=== PATIENT | female | born 1995 | race Caucasian/White ===

== ENCOUNTER 2017-03-12 05:16 | Inpatient (IN) ==
[~2017-03-12 05:16] MED LIST: *HR* FentaNYL (PF) 100 MCG/2 ML VIAL IVP PRN; Famotidine 20 MG/2 ML VIAL IVP PRN; Naloxone 0.4 MG/ML INJ IVP PRN; Ondansetron 4 MG/2 ML VIAL IVP PRN
[2017-03-12] MEDS ORDERED: Ringers Solution, Lactated 1,000 ML IVC SCH (05:30)
[2017-03-12 05:37] LABS: Basophils % 0.2 %; Eosinophils # 0.1 K/mcL (0.0-0.6); Eosinophils % 0.7 %; Hemoglobin 10.4 g/dL (11.5-15.4); Immature Granulocytes % 0.9 % (0-4); Lymphocytes # 2.1 K/mcL (0.6-4.6); Lymphocytes % 17.4 %; Mean Corpuscular HGB Conc 32.5 g/dL (31.6-35.5); Mean Corpuscular Hemoglobin 25.7 pg (28.0-33.3); Mean Corpuscular Volume 79.2 fL (83.0-100.0); Mean Platelet Volume 10.7 fL (9.4-12.4); Monocytes # 0.8 K/mcL (0.0-1.3); Monocytes % 6.8 %; Neutrophils # 8.8 K/mcL (1.6-8.9); Platelet Count 186 K/mcL (140-400); Red Blood Count 4.04 M/mcL (3.82-4.97); Red Cell Distribution Width 14.7 % (11.5-14.5)
[2017-03-12] MEDS ORDERED: Penicillin G Potassium 5,000,000 UNIT in D5% in Water (Mini-Bag+) 100 ML IVPB ONE (05:37)
[2017-03-12] MEDS ORDERED: Metoclopramide 10 MG/2 ML VIAL IVP PRN (05:48)
--- NOTE | 2017-03-12 08:51 | OB/GYN History & Physical ---
Date of Encounter: 03/12/17 Time of Encounter: 08:49 Assessment and Plan (1) 38 weeks gestation of Current visit: Yes Status: Acute (2) SROM (spontaneous rupture of membranes) Current visit: Yes Status: Acute History of Present Illness HPI: Ms. Peck is a 22 year old female 22-year-old 2 para 1 white female who enters complaining of spontaneous rupture membranes at 4 AM patient reports. Patient reports irregular contractions since that time. Patient reports active fetus. Patient reports fluid was clear. She denies problems with her . Patient has been followed by an outside provider. Past Med Surg Social Fam HX - Past Medical History Medical history: no medical history Psychiatric history: anxiety - Past Surgical History Surgical History: cholecystectomy - Social History Smoking Status: Current every day smoker Packs per day: 1 Smokeless Tobacco Status: No Alcohol use: none Drug use: none - Family History Maternal Grandmother Living Status: Hx Family Cancer: Yes Obstetrical History - Pregnancies : 2 Para: 1 Medications and Allergies Ondansetron ODT [Zofran ODT] 4 mg PO PRN 03/12/17 [History] Vit/Iron Fumarate/FA [ Tablet] 1 each PO DAILY 03/12/17 [ History] Allergies No Known Allergies Allergy (Verified 03/12/17 05:17) Review of System OB All systems PM: reviewed and no additional remarkable complaints except as stated - Genitourinary Genitourinary: amenorrhea - Menstruation Menstruation: amenorrhea Exam - Constitutional Constitutional: well developed, no acute distress, obese - HEENT HEENT: Normocephaly - Neck Neck exam: full ROM - Lungs Respiratory exam: CTAB - Cardiovascular Cardiovascular exam: RRR - Abdomen Abdomen: Present: gravid, non tender - Extremities Extremities exam: full ROM Deep Tendon Reflex Grade: 2+ Normal - Vulva Vulva: bilateral: normal - Vagina Vagina: Present: normal moisture - Cervix Dilation: 3 Effacement: 75 Station: -2 - Uterus Uterus exam: Present: enlarged Results Result Diagrams: 03/12/17 05:27 Abnormal lab results WBC 11.8 K/mcL (4.3-11.1) H 03/12/17 05:27 Hgb 10.4 g/dL (11.5-15.4) L 03/12/17 05:27 Hct 32.0 % (35.3-44.9) L 03/12/17 05:27 MCV 79.2 fL (83.0-100.0) L 03/12/17 05:27 MCH 25.7 pg (28.0-33.3) L 03/12/17 05:27 RDW 14.7 % (11.5-14.5) H 03/12/17 05:27 All other labs normal. - VTE Reasons for not Prescribing Prophylaxis: Treatment not Indicated - Low risk for VTE - Attending Attestation joseph henderson md [facility]
[2017-03-12] MEDS: Penicillin G Potassium 2,500,000 UNIT in D5% in Water 100 ML IVPB SCH ×3 (10:03→18:17)
[2017-03-12] MEDS ORDERED: Oxytocin 20 units/ LR 1000 mL 20 UNIT/1,000 ML BAG IVC SCH (12:45)
[2017-03-12] MEDS ORDERED: *HR* FentaNYL (PF) 100 MCG/2 ML VIAL EP ONE (13:46)
[2017-03-12] MEDS ORDERED: EPHEDrine 50 MG/ML VIAL IVP PRN (13:46)
[2017-03-12] MEDS ORDERED: Ringers Solution, Lactated 500 ML IVC ONE (13:46)
[2017-03-12] MEDS ORDERED: *HR* Ropivacaine/PF 0.2% 10 ML AMPUL EP ONE (13:46)
--- NOTE | 2017-03-12 13:49 | Anesthesia Evaluation PreOp ---
Date of Encounter: 03/12/17 Time of Encounter: 10:00 - Past History Planned Operation: NORI Cardiac History: Denies any Significant Hx Pulmonary History: Smoker (0.5ppd) STEREOTYPER History: Denies Any Significant HX Other Medical History: Denies Any Significant HX Anesthesia History: No Prior Anesthetic Complications, Past Anesthesia (epidural ) Alcohol Use: none Drug use: none Medications and Allergies Ondansetron ODT [Zofran ODT] 4 mg PO PRN 03/12/17 [History] Vit/Iron Fumarate/FA [ Tablet] 1 each PO DAILY 03/12/17 [ History] Allergies No Known Allergies Allergy (Verified 03/12/17 05:17) - Meds/Allergy Pre-op Review Medications Reviewed: Yes Allergies Reviewed: Yes Beta Blockers on Current Med List: No Anesthesia Results - Labs 03/12/17 05:27 Anesthesia Exam Height: 1.6m Weight: 94kg NPO (# of Hours): >4hr Pain Scale: 8 Pain Scale Used: Numeric (1 - 10) - HEENT Pupil (Motor): Pupils equal Mallampati: II Teeth: Normal Oral Opening: Greater than 3 - STEREOTYPER LOC: Oriented STEREOTYPER Motor: Normal RUE, Normal LUE, Normal RLE, Normal LLE, Normal Face STEREOTYPER Sensory: Normal: RUE, LUE, RLE, LLE, Face - Cardiac Rhythm: Regular Murmur: None JVD: No Carotid Bruit: No - Pulmonary Breath Sounds: bilateral Clear Respiratory Effort: Symmetrical Anesthesia Assess/Plan ASA Score: 2 Modified [place] Scale for Level of Consciousness: Cooperative, oriented, and tranquil Anesthetic Plan: Regional Monitoring Plan: Standard Monitors Recovery Plan: Other
[2017-03-12] MEDS ORDERED: *HR* FentaNYL (PF) 100 MCG/2 ML VIAL ONE ×2 (13:56→21:23)
[2017-03-12] MEDS ORDERED: Epidural Premix (fent/bupiv) 110 ML EP ONE ×2 (13:57→20:47)
[2017-03-12] MEDS ORDERED: ROPIVACAINE HCL/PF 0.5% 30 ML VIAL ONE (13:57)
[2017-03-12] MEDS ORDERED: Epidural Premix (fent/bupiv) 110 ML EP SCH (14:00)
--- NOTE | 2017-03-12 14:24 | Anesthesia Procedures ---
Date of Encounter: 03/12/17 Time of Encounter: 13:59 Procedures: Anesthesia - Epidural/Spinal Patient ID/Chart reviewed: Yes Patient examined: Yes OB Eval: Gestational age: 38.5 OB Eval: : 2 OB Eval: Hx Para: 1 OB Eval: Contractions: Non-stressed pattern Consent Obtained: Yes Supplemental Oxygen: None/Room Air Site Prep: Aseptic Technique, Sterile prep and drape, 0.5% Chlorhexidine/Alcohol Patient position: upright Local Anesthetic: Lidocaine 1% Amount of Local Anesthetic used: 3 Touhy Needle Gauge: 18 Touhy Needle Depth (cm): 8 Catheter Depth at Skin (cm): 15 Test Dose (1.5% Lido + Epi): Volume given (mls): 5 Test Dose Result: Negative Loading Dose: Fentanyl (mcg): 100 Loading Dose: Other: Ropivacaine 0.5% 10mL Loading Dose Administered: Thru Catheter Infusion Med: 0.125% Bupivacaine w/ 2 mcg/ml Fentanyl Infusion Rate (mls/hr): 14 (Bolus 4mL q15min; Max 3/hr) Catheter Secured in Place: Tegaderm Interspace Used: L3-L4 Loss of Resistance (MORGAN): Yes Blood: No CSF: No Paresthesia: No Procedure: x2 attempts. Patient tolerated well. Vitals + FHT's: Vss and FHR stable throughout. See nursing documentation.
--- NOTE | 2017-03-12 15:46 | Anesthesia Procedures ---
Date of Encounter: 03/12/17 Time of Encounter: 15:22 Procedures: Anesthesia - Epidural/Spinal Patient ID/Chart reviewed: Yes Patient examined: Yes OB Eval: Gestational age: 38.5 OB Eval: : 2 OB Eval: Hx Para: 1 OB Eval: Dilated at (cm): 5 OB Eval: Contractions: Non-stressed pattern Consent Obtained: Yes Supplemental Oxygen: None/Room Air Site Prep: Aseptic Technique, Sterile prep and drape, 0.5% Chlorhexidine/Alcohol Patient position: upright Local Anesthetic: Lidocaine 1% Amount of Local Anesthetic used: 3 Touhy Needle Gauge: 18 Touhy Needle Depth (cm): 7 Catheter Depth at Skin (cm): 14 Test Dose (1.5% Lido + Epi): Volume given (mls): 5 Test Dose Result: Negative Loading Dose: Other: Ropivacaine 0.5% 8mL Loading Dose Administered: Thru Catheter Infusion Rate (mls/hr): 14 (Bolus 4mL q15min; Max 3/hr) Catheter Secured in Place: Tegaderm Interspace Used: L2-L3 Loss of Resistance (MORGAN): Yes Blood: No CSF: No Paresthesia: No Procedure: Following first epidural patient had decrease in pain from 7-8/10 to 2-3/10 initially. Pain level returned to baseline after approximately 1 hour. Only area of profound numbness was in right thigh and knee area. Decision made to replace catheter. Placement without difficulty at L2-3 x1 attempt. Patient tolerated well and reports increased comfort after bolus compared to first epidural. Will continue monitoring. Vitals + FHT's: VSS and FHR stable throughout. See nursing documentation.
--- NOTE | 2017-03-12 18:39 | OB/GYN Progress Note ---
Date of Encounter: 03/12/17 Time of Encounter: 18:37 - Assessment and Plan (1) 38 weeks gestation of Current Visit: Yes Status: Acute (2) SROM (spontaneous rupture of membranes) Current Visit: Yes Status: Acute Subjective - Subjective Interval history: Comfortable with epidural Objective - Vital Signs Vital Signs: Intake and Output 03/12/17 03/12/17 03/12/17 07:59 15:59 23:59 Intake Total 200 / 200 Balance 200 / 200 Intake: IV Fluids 200 / 200 Pfizerpen 2,500,000 UNIT 200 / 200 In Dextrose 5% 100 ML @ 200 mls/hr IVPB Q4HR [facility] Rx#:[id number] Other: Weight 94 kg Patient Weight 03/12/17 23:59 Weight 94 kg - Exam FHR: category 1 Cervical dilation: rim Cervix effacement: 100 station: 0 - Labs Labs: Abnormal lab results WBC 11.8 K/mcL (4.3-11.1) H 03/12/17 05:27 Hgb 10.4 g/dL (11.5-15.4) L 03/12/17 05:27 Hct 32.0 % (35.3-44.9) L 03/12/17 05:27 MCV 79.2 fL (83.0-100.0) L 03/12/17 05:27 MCH 25.7 pg (28.0-33.3) L 03/12/17 05:27 RDW 14.7 % (11.5-14.5) H 03/12/17 05:27
[2017-03-13] MEDS ORDERED: *HR* FentaNYL (PF) 100 MCG/2 ML VIAL ONE ×6 (02:59→09:42)
[2017-03-13] MEDS ORDERED: *HR* Ropivacaine/PF 0.2% 10 ML AMPUL ONE (02:59)
[2017-03-13] MEDS ORDERED: Epidural Premix (fent/bupiv) 110 ML EP ONE (03:47)
--- NOTE | 2017-03-13 07:13 | OB/GYN Progress Note ---
Date of Encounter: 03/13/17 Time of Encounter: 06:40 - Assessment and Plan (1) 38 weeks gestation of Current Visit: Yes Status: Acute (2) SROM (spontaneous rupture of membranes) Current Visit: Yes Status: Acute (3) Prolonged second stage Current Visit: Yes Status: Acute We will allow to labor down. Consider section. Subjective - Subjective Interval history: Per nursing staff, patient has been completely dilated for several hours. They tried pushing her for about an hour with no progress. Will allow her to labor down. Objective - Vital Signs Vital Signs: Intake and Output 03/12/17 03/12/17 03/13/17 15:59 23:59 07:59 Intake Total 200 / 200 Balance 200 / 200 Intake: IV Fluids 200 / 200 Pfizerpen 2,500,000 UNIT 200 / 200 In Dextrose 5% 100 ML @ 200 mls/hr IVPB Q4HR [facility] Rx#:[id number] - Exam FHR: category 1 Cervical dilation: complete Cervix effacement: 100 station: 0 - Labs Labs: Abnormal lab results WBC 11.8 K/mcL (4.3-11.1) H 03/12/17 05:27 Hgb 10.4 g/dL (11.5-15.4) L 03/12/17 05:27 Hct 32.0 % (35.3-44.9) L 03/12/17 05:27 MCV 79.2 fL (83.0-100.0) L 03/12/17 05:27 MCH 25.7 pg (28.0-33.3) L 03/12/17 05:27 RDW 14.7 % (11.5-14.5) H 03/12/17 05:27
[2017-03-13] MEDS ORDERED: Ringers Solution, Lactated 1,000 ML ONE (08:41)
[2017-03-13] MEDS ORDERED: *HR* Oxytocin 10 UNIT/ML VIAL IM ONE (08:58)
[2017-03-13] MEDS ORDERED: *HR* Morphine Sulfate/PF 5 MG/10 ML AMPUL ONE (09:07)
[2017-03-13] MEDS ORDERED: Ketamine *HR* 500 MG/10 ML MDV ONE (09:15)
[2017-03-13] MEDS ORDERED: *HR* Phenylephrine 10 MG/ML VIAL ONE (09:16)
[2017-03-13] MEDS ORDERED: *HR* Promethazine 25 MG/ML VIAL IVP PRN (09:24)
[2017-03-13] MEDS ORDERED: *HR* Meperidine 25 MG/ML SYRINGE IVP PRN (09:24)
[2017-03-13] MEDS ORDERED: *HR* HYDROmorphone (PF) 1 MG/ML SYRINGE IVP PRN ×2 (09:24→12:17)
[2017-03-13] MEDS ORDERED: Ketorolac 30 MG/ML VIAL ONE (09:43)
[2017-03-13] MEDS ORDERED: Ondansetron 4 MG/2 ML VIAL ONE (09:50)
--- NOTE | 2017-03-13 09:56 | OB/GYN Procedure Note ---
Section - Date of procedure: 03/13/17 Preop diagnosis: arrest of descent, category 2 FHT tracing Post-op diagnosis: same Procedure: primary low transverse Surgeon: Marce Galindo Estimated blood loss (cc): 400 Anesthesiologist: Leslee Wheat Automatic Fabric Cutter: Star Collazo Anesthesia Type: Epidural section complications: none Disposition: L&D Recovery Room Specimens: Placenta - (s) Infant A Delivery Date: 03/13/17 Infant Delivery Time: 08:57 Presentation: vertex Position: LOP Route of delivery: other Gender: Male Viability: Viable Pounds: 7 Ounces: 11 Gram Weight: 3475 kg at 1 minute: 7 at 5 minutes: 9 Placenta: complete extraction Cord: nuchal cord, nuchal reduced - Narrative Narrative: Indications: Oncoming change of call. Asked to see patient for evaluation of "turtle sign". Received report that patient has been ruptured for greater than 24 hours and has been completely dilated for several hours. I was told that with pushing the scalp was visualized at the introitus however it would regress along the contraction. I was also told according to the patient that the estimated weight at 32 weeks was 7 pounds. Her care was with Dr. Kovacs. Limited records were present but I could not find any documentation of fundal size with each visit and no ultrasound report was noted. During my exam significant It was noted with a +1 station. heart rate was in the 90s however it did respond to scalp stimulation. Given the above history and findings it was decided to proceed with a section. Procedure: Due to the heart rate in the 90s verbal consent was obtained. Patient was taken the operative room and placed in supine position with left uterine displacement. Skin was then prepped and draped in usual sterile fashion. It should be noted that while the fetus was monitored in the operating room the heart rate was in the 140s. The skin was then prepped and draped in usual sterile fashion, and a timeout procedure was performed. EPCD were in place and IV antibiotics were administered. Adequate anesthesia was present. A Pfannenstiel incision was performed and carried down through the fascial layer until the abdominal cavity was entered. A low-transverse uterine incision was then performed and extended bilaterally with bandage scissors. A viable male was then delivered from a vertex left occiput posterior position with scores of 7 and 9 at one and 5 minutes respectively, and the weighed 7 lbs. 1 oz. A loose nuchal cord 1 was present and was easily reduced. The cord was clamped and cut and the was handed to the nursery team. The placenta was then manually removed. The uterine incision was closed in a layered fashion with 0 Vicryl suture in a running locking fashion. Both tubes and ovaries were visualized with no abnormalities noted. The paracolic gutters were then gently wiped clean with wet lap sponge. Good hemostasis was present. The fascial layer was then closed with 0 PDS stratafix suture in a running nonlocking fashion. Subcutaneous layer was then irrigated with sterile water and good hemostasis was noted. Subcutaneous layer was closed with 0 chromic suture in a running nonlocking fashion. The skin was then closed with 4-0 Vicryl suture in a running nonlocking subcuticular fashion. A piece of Dermabond mesh was then placed over the incision site. Patient followed procedure well, all sponge needle and counts reported as correct. Estimated blood loss was 400 mL. The urine in the Granados catheter was clear and yellow. She was admitted to the recovery room in stable condition.
[2017-03-13] MEDS ORDERED: Oxytocin 20 units/ LR 1000 mL 20 UNIT/1,000 ML BAG IVC ONE (10:08)
[2017-03-13] MEDS ORDERED: Ondansetron 4 MG/2 ML VIAL IVP PRN (12:17)
[2017-03-13] MEDS ORDERED: Simethicone 80 MG TAB.CHEW PO PRN (12:17)
[2017-03-13] MEDS ORDERED: Metoclopramide 10 MG/2 ML VIAL IVP PRN (12:17)
[2017-03-13] MEDS ORDERED: Oxytocin 20 units/ LR 1000 mL 20 UNIT/1,000 ML BAG IVC SCH (12:17)
--- NOTE | 2017-03-13 15:08 | Anesthesia Evaluation Post Op ---
Date of Encounter: 03/13/17 Time of Encounter: 15:07 - Vital Signs Vital Signs: vss - Lungs Lungs: Clear Ascult./Percussion - Airway Airway: Non-obstructed - Cardiovascular Baseline Rhythm - Mental Status Mental Status: Alert & Oriented, Answers Appropriately - Pain Pain Scale used: Pappas-Pepe (Faces) (tolerable) - Nausea Vomiting Nausea Vomiting: Not Present
[2017-03-14] MEDS: Ibuprofen 600 MG TABLET PO PRN ×3 (00:14→15:56)
[2017-03-14 04:27] LABS: Basophils % 0.2 %; Eosinophils # 0.1 K/mcL (0.0-0.6); Hematocrit 25.2 % (35.3-44.9); Immature Granulocytes % 0.5 % (0-4); Lymphocytes % 18.4 %; Mean Corpuscular HGB Conc 32.5 g/dL (31.6-35.5); Mean Corpuscular Hemoglobin 25.6 pg (28.0-33.3); Mean Corpuscular Volume 78.8 fL (83.0-100.0); Mean Platelet Volume 11.1 fL (9.4-12.4); Monocytes # 0.8 K/mcL (0.0-1.3); Monocytes % 7.5 %; Platelet Count 145 K/mcL (140-400); Red Cell Distribution Width 14.8 % (11.5-14.5); Segmented Neutrophils % 72.4 %
[2017-03-14 04:28] LABS: Hemoglobin 8.2 g/dL (11.5-15.4)
[2017-03-14] MEDS: Prenatal Vit/FA 1 EACH TABLET PO SCH (07:48)
[2017-03-14] MEDS: *HR* OxyCODONE/APAP 5/325 TABLET PO PRN ×3 (08:16→17:45)
--- NOTE | 2017-03-14 08:54 | OB/GYN Progress Note ---
Date of Encounter: 03/14/17 Time of Encounter: 08:52 - Assessment and Plan (1) Status post primary low transverse section Current Visit: Yes Status: Acute Continue routine postop/ care possible discharge home tomorrow (2) anemia Current Visit: Yes Status: Acute Ferrous sulfate BID Subjective - Subjective Principal diagnosis: Postop/ day 1 primary c/s Interval history: Patient up ambulating in room. Patient denies any pain at this time. Patient is bottle feeding. Patient reports: appetite normal, voiding normally, pain well controlled, ambulating normally : doing well, bottle feeding Objective - Vital Signs Latest vital signs: Vital Signs Temp Pulse Resp BP Pulse Ox 03/14/17 08:29 97.9 F 80 16 95/60 97 03/14/17 08:14 12 03/14/17 04:00 98.4 F 84 12 100/64 96 03/14/17 00:15 98.2 F 88 14 103/68 95 03/13/17 20:00 98.4 F 89 12 104/68 95 03/13/17 15:00 98.4 F 90 16 113/70 96 03/13/17 14:00 98.7 F 79 16 111/55 97 03/13/17 13:00 98.8 F 81 16 98/49 98 03/13/17 12:30 98.3 F 89 16 113/54 96 03/13/17 12:12 98.5 F 83 16 118/64 96 Intake and Output 03/13/17 03/14/17 03/14/17 23:59 07:59 15:59 Output Total 350 / 350 1600 / 1600 400 / 400 Balance -350 / -350 -1600 / -1600 -400 / -400 Output: Urine 400 / 400 Catheter 350 / 350 1600 / 1600 Other: Weight 92.6 kg Patient Weight 03/14/17 23:59 Weight 92.6 kg - Exam Lungs: bilateral: normal Chest: Normal S1, Normal S2 Extremities: Present: normal Abdomen: Present: normal appearance, soft, gravid Incision: Present: normal, dry, intact Uterus: Present: normal, firm Fundal Height: 2 (U/2) - Labs Labs: Laboratory Results - last 24 hr 03/14/17 04:00 WBC 11.0 RBC 3.20 L Hgb 8.2 L D Hct 25.2 L MCV 78.8 L MCH 25.6 L MCHC 32.5 RDW 14.8 H Plt Count 145 MPV 11.1 Immature Gran % 0.5 Seg Neutrophils % 72.4 Lymphocytes % 18.4 Monocytes % 7.5 Eosinophils % 1.0 Basophils % 0.2 Neutrophils # 8.0 Lymphocytes # 2.0 Monocytes # 0.8 Eosinophils # 0.1 Basophils # 0.0
[2017-03-15] MEDS: Ibuprofen 600 MG TABLET PO PRN ×3 (00:19→15:55)
[2017-03-15] MEDS: *HR* OxyCODONE/APAP 5/325 TABLET PO PRN ×3 (00:19→15:55)
[2017-03-15 08:23] VITALS: BP 100/56
[2017-03-15] MEDS: Prenatal Vit/FA 1 EACH TABLET PO SCH (10:10)
--- NOTE | 2017-03-15 10:17 | Discharge Summary ---
Date of Encounter: 03/15/17 Time of Encounter: 10:14 - Discharge Diagnosis (1) Status post primary low transverse section Priority: Primary Status: Acute Comments: Meeting all milestones. No complaints. Desires discharge (2) anemia Priority: Secondary Status: Acute Comments: Iron rx at discharge - Discharge Medications Prescriptions: OxyCODONE/APAP 5/325 [Percocet 5/325 MG] 1 each PO Q4HR PRN #20 tablet PRN Reason: Moderate pain 4-6 Ibuprofen [Motrin] 600 mg PO Q6HR PRN #60 tablet PRN Reason: Cramping Docusate [Colace] 100 mg PO BID #60 capsule Ferrous Sulfate 325 mg PO BIDWM #60 tablet Home Medications: Vit/Iron Fumarate/FA [ Tablet] 1 each PO DAILY 03/12/17 [ History] Docusate [Colace] 100 mg PO BID #60 capsule 03/15/17 [Rx] Ferrous Sulfate 325 mg PO BIDWM #60 tablet 03/15/17 [Rx] Ibuprofen [Motrin] 600 mg PO Q6HR PRN #60 tablet 03/15/17 [Rx] OxyCODONE/APAP 5/325 [Percocet 5/325 MG] 1 each PO Q4HR PRN #20 tablet 03/15/17 [Rx] Allergies/Adverse Reactions: Allergies No Known Allergies Allergy (Verified 03/12/17 05:17) Data Procedures and tests throughout hospitalization: Laboratory Tests 03/12/17 03/14/17 05:27 04:00 WBC 11.8 H 11.0 RBC 4.04 3.20 L Hgb 10.4 L 8.2 L D Hct 32.0 L 25.2 L MCV 79.2 L 78.8 L MCH 25.7 L 25.6 L MCHC 32.5 32.5 RDW 14.7 H 14.8 H Plt Count 186 145 MPV 10.7 11.1 Immature Gran % 0.9 0.5 Seg Neutrophils % 74.0 72.4 Lymphocytes % 17.4 18.4 Monocytes % 6.8 7.5 Eosinophils % 0.7 1.0 Basophils % 0.2 0.2 Neutrophils # 8.8 8.0 Lymphocytes # 2.1 2.0 Monocytes # 0.8 0.8 Eosinophils # 0.1 0.1 Basophils # 0.0 0.0 Date of admission: 03/12/17 05:16 Primary care physician: PCP NO Discharging clinician: Mary Guy Anticipated date of discharge: 03/15/17 - Patient Status Disposition: Home, Self-Care Condition: Good Functional capacity at discharge: independent ambulation Overall status at discharge: patient is back to baseline - Discharge Instructions Instructions: Anemia (GEN) Follow Up With: NO,PCP [Primary Care Provider] - Marce Galindo DO [Partnered Physician] - - Diet and Activity Activity: resume usual activities as tolerated Diet: regular diet Hospital Course Reason for admission: IUP at term Delivery: section Episiotomy: none Laceration: none Other procedures: none complications: none Discharge diagnosis: IUP at term delivered [place] baby: male Hospital course: Section - Date of procedure: 03/13/17 Preop diagnosis: arrest of descent, category 2 FHT tracing Post-op diagnosis: same Procedure: primary low transverse Surgeon: Marce Galindo Estimated blood loss (cc): 400 Anesthesiologist: Leslee Wheat Event Specialist: Star Collazo Anesthesia Type: Epidural section complications: none Disposition: L&D Recovery Room Specimens: Placenta - (s) A Delivery Date: 03/13/17 Delivery Time: 08:57 Presentation: vertex Position: LOP Route of delivery: other Gender: Male Viability: Viable Pounds: 7 Ounces: 11 Gram Weight: 3475 kg at 1 minute: 7 at 5 minutes: 9 Placenta: complete extraction Cord: nuchal cord, nuchal reduced Stable in . Appropriate for discharge OAARS reviewed Time Attestation: Total time spent providing and/or coordinating discharge services: Time Spent: Less than 30 minutes - VTE Reasons for not Prescribing Prophylaxis: Treatment not Indicated - Low risk for VTE Documentation of Mechanical Device: Intermittent pneumatic compression device Exam - Constitutional Vitals: Temp Pulse Resp BP Pulse Ox 97.7 F 64 12 100/56 96 03/15/17 07:55 03/15/17 07:55 03/15/17 07:55 03/15/17 07:55 03/15/17 07:55 General appearance IM: A&O X 3 - Respiratory Respiratory exam: Present: CTAB - Cardiovascular Cardiovascular exam IM: Present: RRR, +S1, +S2 - GI/Abdominal GI/Abdominal exam IM: soft Incision: normal, dry, intact - Uterine Tone: Firm Uterus Position: Midline - Extremities Exam Extremities exam IM: Present: normal capillary refill, normal inspection - Neurological Exam Neurological exam: normal gait, oriented X3, reflexes normal - Psychiatric Additional comments: reports good mood
== END 2017-03-15 18:00 | disposition home or self-care (01) | DRG 540 ==
LOC: 1NENULAB → 1NENUOBS 03-13 12:01
PROVIDERS: ADMIT Obstetrics & Gynecology; ATTEND Obstetrics & Gynecology

== ENCOUNTER 2019-11-27 17:05 | Inpatient (IN) ==
[~2019-11-27 17:05] MED LIST changes: -*HR* FentaNYL (PF) 100 MCG/2 ML VIAL IVP PRN; +Azithromycin 500 MG in 0.9 % Sodium Chloride 250 ML IVPB STA; +CeFAZolin 2,000 MG/50 ML BAG IVPB ONE; +Famotidine 20 MG/2 ML VIAL IVP ONE; -Famotidine 20 MG/2 ML VIAL IVP PRN; +Metoclopramide 10 MG/2 ML VIAL IVP ONE; -Naloxone 0.4 MG/ML INJ IVP PRN; -Ondansetron 4 MG/2 ML VIAL IVP PRN; +Oxytocin 20 units/ LR 1000 mL 20 UNIT/1,000 ML BAG IVC ONE; +Ringers Solution, Lactated 1,000 ML ONE
[2019-11-27] MEDS ORDERED: Oxytocin 20 units/ LR 1000 mL 20 UNIT/1,000 ML BAG IVC SCH (17:15)
[2019-11-27] MEDS ORDERED: Ringers Solution, Lactated 1,000 ML IVC SCH (17:15)
[2019-11-27] MEDS ORDERED: *HR* Oxytocin 10 UNIT/ML VIAL IM ONE ×2 (17:19→18:35)
[2019-11-27] MEDS ORDERED: *HR* FentaNYL (PF) 100 MCG/2 ML VIAL ONE (17:19)
[2019-11-27] MEDS ORDERED: *HR* Morphine Sulfate/PF 10 MG/10 ML AMPUL ONE (17:19)
[2019-11-27 17:40] LABS: Amphetamine Screen,Urine Negative ng/mL (Cutoff=1000); Barbiturate Screen,Urine Negative ng/mL (Cutoff=200); Benzodiazepines Screen,Urine Negative ng/mL (Cutoff=200); Cannabinoid Screen,Urine Negative ng/mL (Cutoff = 50); Cocaine Screen,Urine Negative ng/mL (Cutoff= 300); Opiate Screen,Urine Negative ng/mL (Cutoff=300); Phencyclidine Screen,Urine Negative ng/mL (Cutoff=25)
[2019-11-27 17:42] LABS: Basophils % 0.1 %; Eosinophils # 0.1 K/mcL (0.0-0.6); Eosinophils % 0.5 %; Hematocrit 30.7 % (35.3-44.9); Hemoglobin 9.1 g/dL (11.5-15.4); Immature Granulocytes % 0.5 % (0-4); Lymphocytes # 1.8 K/mcL (0.6-4.6); Mean Corpuscular HGB Conc 29.6 g/dL (31.6-35.5); Mean Corpuscular Hemoglobin 20.6 pg (28.0-33.3); Mean Corpuscular Volume 69.5 fL (83.0-100.0); Mean Platelet Volume 10.7 fL (9.4-12.4); Monocytes # 1.1 K/mcL (0.0-1.3); Monocytes % 7.8 %; Neutrophils # 10.7 K/mcL (1.6-8.9); Nucleated Red Blood Cells 0.1 /100 WBC (0); Platelet Count 221 K/mcL (140-400); Red Blood Count 4.42 M/mcL (3.82-4.97); Red Cell Distribution Width 17.5 % (11.5-14.5); Segmented Neutrophils % 78.1 %; White Blood Count 13.7 K/mcL (4.3-11.1)
[2019-11-27] MEDS ORDERED: Acetaminophen IV 1,000 MG/100 ML INFUS..BTL ONE (17:47)
[2019-11-27] MEDS ORDERED: Ringers Solution, Lactated 1,000 ML ONE ×2 (17:49→18:35)
[2019-11-27] MEDS ORDERED: Ondansetron 4 MG/2 ML VIAL ONE (18:07)
[2019-11-27] MEDS ORDERED: *HR* OxyCODONE Immed Rel 5 MG TABLET PO PRN (18:55)
[2019-11-27] MEDS ORDERED: Acetaminophen IV 1,000 MG/100 ML INFUS..BTL IVPB ONE (18:55)
[2019-11-27] MEDS ORDERED: *HR* HYDROmorphone PF 0.5 MG/0.5 ML SYRINGE IVP PRN (18:55)
[2019-11-27] MEDS ORDERED: Ondansetron 4 MG/2 ML VIAL IVP ONE (18:55)
[2019-11-27] MEDS ORDERED: Metoclopramide 10 MG/2 ML VIAL IVP PRN (20:04)
[2019-11-27] MEDS ORDERED: Simethicone 80 MG TAB.CHEW PO PRN (20:04)
[2019-11-27] MEDS ORDERED: Ondansetron 4 MG/2 ML VIAL IVP PRN (20:04)
[2019-11-27] MEDS ORDERED: Sennosides 8.6 MG TABLET PO PRN (20:04)
[2019-11-27] MEDS ORDERED: Rho Immune Globulin 1,500 UNIT SYRINGE IM ONE (20:04)
[2019-11-27] MEDS: Ibuprofen 600 MG TABLET PO PRN (21:51)
[2019-11-28] MEDS: Oxytocin 20 units/ LR 1000 mL 20 UNIT/1,000 ML BAG IVC SCH ×2 (00:21→08:34)
[2019-11-28] MEDS: ceFAZolin 1,000 MG in Water for inj. (sterile) 10 ML IVP SCH ×3 (00:22→15:30)
[2019-11-28] MEDS: *HR* OxyCODONE/APAP 5/325 TABLET PO PRN ×3 (05:32→20:28)
[2019-11-28 06:14] LABS: Basophils % 0.3 %; Eosinophils # 0.1 K/mcL (0.0-0.6); Eosinophils % 1.1 %; Hematocrit 22.2 % (35.3-44.9); Immature Granulocytes % 0.4 % (0-4); Lymphocytes # 1.9 K/mcL (0.6-4.6); Lymphocytes % 18.4 %; Mean Corpuscular HGB Conc 30.2 g/dL (31.6-35.5); Mean Corpuscular Hemoglobin 21.5 pg (28.0-33.3); Mean Corpuscular Volume 71.4 fL (83.0-100.0); Mean Platelet Volume 10.1 fL (9.4-12.4); Monocytes # 0.9 K/mcL (0.0-1.3); Monocytes % 8.3 %; Neutrophils # 7.5 K/mcL (1.6-8.9); Platelet Count 160 K/mcL (140-400); Red Blood Count 3.11 M/mcL (3.82-4.97); Red Cell Distribution Width 17.4 % (11.5-14.5); Segmented Neutrophils % 71.5 %; White Blood Count 10.4 K/mcL (4.3-11.1)
[2019-11-28 06:20] LABS: Hemoglobin 6.7 g/dL (11.5-15.4)
[2019-11-28] MEDS ORDERED: Ringers Solution, Lactated 1,000 ML ONE (06:22)
[2019-11-28] MEDS: Prenatal Vit/FA 1 EACH TABLET PO SCH (08:19)
[2019-11-29] MEDS: *HR* OxyCODONE/APAP 5/325 TABLET PO PRN (01:33)
[2019-11-29 06:32] LABS: Basophils % 0.3 %; Eosinophils # 0.1 K/mcL (0.0-0.6); Hematocrit 20.8 % (35.3-44.9); Hemoglobin 6.1 g/dL (11.5-15.4); Lymphocytes # 1.8 K/mcL (0.6-4.6); Lymphocytes % 15.5 %; Mean Corpuscular HGB Conc 29.3 g/dL (31.6-35.5); Mean Corpuscular Hemoglobin 20.6 pg (28.0-33.3); Mean Corpuscular Volume 70.3 fL (83.0-100.0); Mean Platelet Volume 10.3 fL (9.4-12.4); Monocytes # 0.9 K/mcL (0.0-1.3); Monocytes % 8.1 %; Neutrophils # 8.5 K/mcL (1.6-8.9); Nucleated Red Blood Cells 0.2 /100 WBC (0); Platelet Count 169 K/mcL (140-400); Red Blood Count 2.96 M/mcL (3.82-4.97); Red Cell Distribution Width 17.4 % (11.5-14.5); Segmented Neutrophils % 74.1 %; White Blood Count 11.5 K/mcL (4.3-11.1)
[2019-11-29] MEDS: Ibuprofen 600 MG TABLET PO PRN (07:34)
[2019-11-29] MEDS: Prenatal Vit/FA 1 EACH TABLET PO SCH (07:35)
[2019-11-29 09:48] VITALS: BP 110/75
== END 2019-11-29 13:10 | disposition home or self-care (01) | DRG 539 ==
LOC: 1NENULAB → 1NENUOBS 21:16
PROVIDERS: ADMIT Advanced Practice Midwife; ATTEND Advanced Practice Midwife